=== PATIENT | female | born 1995 | race Caucasian/White ===

== ENCOUNTER 2017-04-25 15:59 | Emergency (ER) | payer OTHER ==
[~2017-04-25] VITALS: Ht 167.6 cm; Wt 78.9 kg
[2017-04-25 16:02] VITALS: Ht 167.6 cm; Wt 78.9 kg
[2017-04-25 18:35] LABS: BASOPHIL % 0.3 % (0-2); PLATELET COUNT 356 x10^3mcL (130-400)
[2017-04-25 18:36] LABS: RED CELL DISTRIBUTION WIDTH 15.7 % (11.5-14.5)
[2017-04-25 20:58] VITALS: BP 123/78
== END 2017-04-25 20:58 | disposition home or self-care (01) ==
LOC: ED 15:59
PROVIDERS: Emergency Medicine
DX: O20.0 Threatened abortion (principal); O23.41 Unspecified infection of urinary tract in pregnancy, first trimester; Z3A.00 Weeks of gestation of pregnancy not specified
CPT/HCPCS: 36415